=== PATIENT | female | born 1965 | race Caucasian/White ===

== ENCOUNTER → 2019-12-17 | Day surgery (SDC) | payer BC ==
--- NOTE | 2019-12-16 08:22 | PCM.PREANE ---
Preanesthetic Assessment - Anesthesia/Transfusion/Family Hx Anesthesia History: Prior Anesthesia Without Reaction Family History of Anesthesia Reaction: No Transfusion History: No Prior Transfusion(s) Intubation History: Unknown - Review of Systems General: No Symptoms Pulmonary: No Symptoms (Naltrexone: 2 nights ago. ETOH: occasionally) Cardiovascular: No Symptoms Gastrointestinal: No Symptoms Neurological: No Symptoms (lumbar back pain), Tingling (right little (5th) finger) Other: Reports: None (Decreased kidney function: GFR: 46, elevated BUN, CR.), Thyroid Problems (hypothyroid), Sinus Problem (seasonal allergies) - Physical Assessment NPO Status Date: 12/16/19 NPO Status Time: 04:00 Vital Signs: HR:53 B/P:108/68 Resp:16 Temp:98.3 Sat:100% Height: 1.63 m Weight: 63.503 kg ASA Class: 2 Mental Status: Alert & Oriented x3 Airway Class: Mallampati = 2 Dentition: Reports: Normal Dentition, Caries Thyro-Mental Finger Breadths: 3 Mouth Opening Finger Breadths: 3 ROM/Head Extension: Full Lungs: Clear to Auscultation, Normal Respiratory Effort Cardiovascular: Regular Rate, Regular Rhythm, No Murmurs - Lab Values: All labs reviewed and noted and within acceptable ranges to proceed with scheduled procedure. - Allergies Allergies/Adverse Reactions: Allergies Allergy/AdvReac Type Severity Reaction Status Date / Time No Known Allergies Allergy Verified 12/16/19 16:38 - Anesthesia Plan Pre-Op Medication Ordered: None - Acknowledgements Anesthesia Type Planned: MAC Pt an Appropriate Candidate for the Planned Anesthesia: Yes Alternatives and Risks of Anesthesia Discussed w Pt/Guardian: Yes Pt/Guardian Understands and Agrees with Anesthesia Plan: Yes PreAnesthesia Questionnaire - HOME MEDS Home Medications: Home Meds C T3 T4 50 mg PO DAILY 12/16/19 [History] Multivitamin [Daily Multiple Vitamin] 1 tab PO DAILY 12/16/19 [History] Naltrexone 6.5 Mg 6.5 mg PO DAILY 12/16/19 [History] Progesterone, Micronized [Progesterone] 200 mg PO BEDTIME 12/16/19 [History] Testosterone [Androgel] 1 dose TOP DAILY 12/16/19 [History] estradioL [Estradiol] 10 mcg VAG ASDIRECTED 12/16/19 [History] - CURRENT (IN HOUSE) MEDS Current Meds: Current Medications Lactated Ringer's (Ringers, Lactated) 1,000 mls @ 125 mls/hr IV ASDIRECTED MILLA Lidocaine/Sodium Bicarbonate (Buffered Lidocaine 1% In Ns 8.4%) 0.25 ml IDERM ONETIME PRN PRN Reason: Prior to IV Start Sodium Chloride (Saline Flush) 10 ml FLUSH ASDIRECTED PRN PRN Reason: Keep Vein Open
[~2019-12-17] MED LIST: Lactated Ringers 1,000 ML IV SCH; Lidocaine 1% 4 ML ONE; Lidocaine 1%/Sod Bicarbonate in NS 8.4% 1 ML Syringe IDERM PRN; Midazolam 1 MG/ML 2 ML SDV ONE; Propofol 200 MG/20 ML SDV ONE; Sodium Chloride 0.9% 10 ML Syringe FLUSH PRN; fentaNYL 100 MCG/2 ML SDV ONE
--- NOTE | 2019-12-17 11:02 | PCM48HPAN ---
Post Anesthesia Note - EVALUATION WITHIN 48HRS OF ANESTHETIC Vital Signs in Normal Range: Yes Patient Participated in Evaluation: Yes Respiratory Function Stable: Yes Airway Patent: Yes Cardiovascular Function Stable: Yes Hydration Status Stable: Yes Pain Control Satisfactory: Yes Nausea and Vomiting Control Satisfactory: Yes Mental Status Recovered: Yes Vital Signs: Last Vital Signs Temp 97.1 F 12/17/19 10:57 Pulse 51 L 12/17/19 10:57 Resp 16 12/17/19 10:57 BP 113/72 12/17/19 10:57 Pulse Ox 95 12/17/19 10:57 - COMMENTS/OBSERVATIONS Free Text/Narrative:: rests
--- NOTE | 2019-12-17 11:09 | PCM.PRNOTE ---
- Free Text/Narrative Note: Date: 12/17/2019 Procedure: screening colonoscopy Findings: very difficult turn at splenic flexure, to the point the procedure was nearly aborted. Prep was excellent, appendiceal orifice and ileocecal valve visualized. No polyp, diverticula, or hemorrhoids noted. Detailed Report: The patient was taken to the endoscopy suite and placed in left lateral decubitus position. Time out was performed and monitored anesthesia care initiated. The anus appeared normal. Digital rectal exam was unremarkable. The colonoscope was inserted and advanced toward the cecum. At about 6 cm from the verge, there was a sharp turn where maintaining view of the lumen was very difficult, and advancement of the scope seemed precarious. There was some minor mucosal trauma sustained while different methods were used to try to safely pass this point, including laying the patient supine, different abdominal maneuvers, etc. With great care and persistence, this area was eventually passed. The remainder of the procedure was straightforward. The prep was excellent. The cecum was reached, and the appendiceal orifice and ileocecal valve were visualized. The scope was slowly withdrawn as mucosal surfaces were carefully inspected. No polyps, diverticula, or hemorrhoids noted. Air was evacuated prior to removal of the scope. The patient tolerated the procedure well. Phil Cline MD General Surgery
== END | disposition home or self-care (01) ==
LOC: JD.SDS 08:25
PROVIDERS: ATTEND Surgery
DX: Z12.11 Encounter for screening for malignant neoplasm of colon (principal); E03.9 Hypothyroidism, unspecified; K63.89 Other specified diseases of intestine; Z79.899 Other long term (current) drug therapy
CPT/HCPCS: 45378; J2001; J2250; J2704; J3010; J7120; J2710

== ENCOUNTER 2020-03-18 15:31 | Emergency (ER) | payer BC ==
[2020-03-18] MEDS ORDERED: HYDROmorphone 0.5 MG/0.5 ML Syringe IVPUSH ONE (15:47)
[2020-03-18] MEDS ORDERED: Ondansetron 4 MG/2 ML SDV IVPUSH ONE (15:47)
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
[2020-03-18] MEDS ORDERED: Sodium Chloride 0.9% 10 ML Syringe FLUSH PRN (16:00)
[2020-03-18] MEDS ORDERED: Iopamidol 612 MG/ML 100 ML Bottle IVPUSH ONE (16:00)
[2020-03-18] MEDS ORDERED: Dextrose 5%-0.9% NaCl 1,000 ML IV SCH (16:00)
--- NOTE | 2020-03-18 16:36 | CT ---
CT cervical spine Technique: Multiple axial sections were obtained from above C1 inferiorly to the mid T4 level. Reconstructed sagittal and coronal images were reviewed. Comparison: No previous cervical spine imaging is available. Findings: Fractures are seen within the posterior first through fourth ribs. Vertebral bodies and posterior arches are intact with no cervical spine fracture being seen. Severe disc space narrowing is noted at C5-C6 with endplate cystic change and posterior and anterior endplate osteophytes. Mild left-sided neural foraminal stenosis noted at C5-C6. Mild degenerative apophyseal change is scattered throughout the apophyseal joints. No abnormal subluxation is seen. Impression: 1. Degenerative change as noted above. 2. Fractures within the posterior first through fourth left ribs. 3. No acute cervical spine fracture is identified. Diagnostic code #3 Study was dictated in MDT
--- NOTE | 2020-03-18 16:44 | CT ---
CT thoracic spine Technique: Multiple axial sections through the thoracic spine were obtained. Reconstructed coronal and sagittal images were obtained. Comparison: No prior thoracic spine imaging is available. Findings: Fractures are seen within the posterior first through fourth left ribs. Fractures are seen within the spinous process of the third through sixth vertebral body. No vertebral body fracture is seen. No abnormal subluxation is seen. Scattered degenerative change is present. Impression: 1. Fractures within 4 posterior left ribs as well as within 4 spinous processes as described above. 2. Degenerative change. Diagnostic code #3 Study was dictated in MDT
--- NOTE | 2020-03-18 16:55 | CT ---
CT chest Technique: Multiple axial sections were obtained from above the lung apices inferiorly through the lung bases. Intravenous contrast was utilized. Comparison: No prior chest imaging is available. Findings: Aorta shows no aneurysm. Mediastinum shows no hematoma. No adenopathy is seen. No pericardial fluid is seen. Slight dependent atelectasis is seen posteriorly. Lungs show no acute parenchymal change. There is mild soft tissue density which is mostly pleural related in areas of fractures involving the first through fourth ribs. No pneumothorax is seen. Bone window settings were reviewed. Posterior fractures within the first through fourth ribs are noted. Displaced fracture noted within the lateral third rib. Nondisplaced fracture within the lateral second rib. No additional fracture is appreciated. Spinous process fractures are again seen as described on thoracic spines. Reconstructed images of the sternum appear intact. Impression: 1. Posterior rib fractures within the first through fourth ribs. Nondisplaced lateral rib fracture within the left second rib. Displaced rib fracture within the lateral left third rib. 2. Spinous process fractures as described on thoracic spine CT. 3. Pleural thickening within the upper left chest in the area of rib fractures. 4. No other acute finding is seen on CT study of the chest. No pneumothorax seen at this time. Diagnostic code #3 Study was dictated in [facility]. CT abdomen and pelvis Technique: Multiple axial sections were obtained from above the dome of the liver inferiorly through the pubic symphysis. Intravenous contrast was utilized. No oral contrast has been given. Comparison: Prior CT abdomen and pelvis study of 02/02/11. Findings: Liver contains no focal abnormality. Spleen appears within normal limits. Adrenal glands show no nodule. Pancreas shows no abnormality. Kidneys show symmetric contrast enhancement without hydronephrosis or mass. Aorta shows no aneurysm. No retroperitoneal adenopathy is seen. Appendix is seen which is normal in size. No mesenteric abnormalities are seen. No pelvic mass or adenopathy is seen. No free fluid or inflammatory change is appreciated. Delayed images shows contrast within the bladder and within the ureters. Bone window settings were reviewed no acute osseous finding is seen within the lumbar spine or within the pelvis. Impression: 1. Nothing acute if seen on CT study of the abdomen and pelvis. Diagnostic code #1 Study was dictated in MDT
[2020-03-18] MEDS ORDERED: HYDROmorphone 1 MG/ML Syringe IVPUSH ONE (18:13)
== END 2020-03-18 18:39 | disposition home or self-care (01) ==
LOC: JD.ED 15:31
DX: S22.42XA Multiple fractures of ribs, left side, initial encounter for closed fracture (principal); S22.039A Unspecified fracture of third thoracic vertebra, initial encounter for closed fracture; S22.049A Unspecified fracture of fourth thoracic vertebra, initial encounter for closed fracture; S22.059A Unspecified fracture of T5-T6 vertebra, initial encounter for closed fracture; S80.12XA Contusion of left lower leg, initial encounter; S50.11XA Contusion of right forearm, initial encounter; S22.32XD Fracture of one rib, left side, subsequent encounter for fracture with routine healing; S40.212A Abrasion of left shoulder, initial encounter; S40.211A Abrasion of right shoulder, initial encounter; S40.812A Abrasion of left upper arm, initial encounter; E03.9 Hypothyroidism, unspecified; Z79.899 Other long term (current) drug therapy; V92.03XA Drowning and submersion due to fall off other powered watercraft, initial encounter; Y93.17 Activity, water skiing and wake boarding
CPT/HCPCS: 36415; 71260; 72125; 72128; 74177; 80053; 82550; 83690; 85025; 85610; 85730; 96361; 96374; 96375; 96376; 99284; J1170; J2405; J7042; Q9967; 99285